=== PATIENT | female | born 1965 | race Caucasian/White ===

== ENCOUNTER 2022-04-08 11:43 | Outpatient (CLI) | payer OTHER, SELFPAY ==
--- NOTE | 2022-04-08 12:18 | XR_ITS ---
WS: [id number] Sacrum and coccyx, 3 views, 04/08/2022 Clinical Data: BACK PAIN/COCCYX PAIN Comparison: None. Findings: No fractures or dislocations are seen. The SI joints and pubic symphysis are unremarkable. No bone de struction or erosion is seen. XR/XR sacrum coccyx min 2V [id number] Impression: Negative sacrum and coccyx.
--- NOTE | 2022-04-08 12:18 | XR_ITS ---
WS: [id number] Lumbar spine, 3 views, 04/08/2022 Clinical Data: BACK PAIN/COCCYX PAIN Comparison: None. Findings: No compression fractures or subluxation is seen. No disc space narrowing is seen. The transverse proc esses and SI joints are normal. There is a minimal levoscoliosis. There are small osteophytes anteriorly L1-L4 XR/XR lumbar spine 2-3V* [id number] Impression: 1. Levoscoliosis. 2. Osteoarthritis L1-L4.
== END 2022-04-08 11:44 | disposition home or self-care (01) ==
LOC: RT 11:44
PROVIDERS: Visit Provider Family Medicine
DX: M47.816 Spondylosis without myelopathy or radiculopathy, lumbar region (principal); M41.86 Other forms of scoliosis, lumbar region; M53.3 Sacrococcygeal disorders, not elsewhere classified
CPT/HCPCS: 72100; 72220; 94060; J7613

== ENCOUNTER 2025-05-16 11:03 | Outpatient (CLI) | payer OTHER, MEDICAID, SELFPAY ==
--- NOTE | 2025-05-16 11:00 | MM_ITS ---
WS: [id number] Bilateral screening 3D tomosynthesis digital mammogram, 05/16/2025 11:15 AM Clinical Data: SCREENING Comparison: None. Findings: No spiculated masses or clustered calcifications are seen. There are no secondary signs of carcinoma. MM/MM scr BI tomosynthesis [id number] Impression: Negative bilateral mammogram unchanged. Recommend annual screening mammograms. BIRADS: 1 - Negative. FOLLOW UP: 1 Year Follow-up DENSITY: There are scattered areas of fibroglandular density. The CAD cashier or checker stock clerk was used
== END 2025-05-16 11:04 | disposition home or self-care (01) ==
LOC: MOBLMAM 11:14
PROVIDERS: PCP Student in an Organized Health Care Education/Training Program; Visit Provider Student in an Organized Health Care Education/Training Program
DX: Z12.31 Encounter for screening mammogram for malignant neoplasm of breast (principal); R92.323 Mammographic fibroglandular density, bilateral breasts
CPT/HCPCS: 77063; 77067